=== PATIENT | female | born 1935 | race African-American/Black ===

== ENCOUNTER 2016-08-25 17:49 | Emergency (ER) | payer MEDICARE ==
[~2016-08-25] VITALS: Ht 154.9 cm; Wt 78.0 kg
[~2016-08-25 17:49] MED LIST: AMLO2.5T OR; BENI40TA33 PO; CARV3.12 OR; CLON.1 PO; MECL25CH PO; VITA100T15 PO; VITA400C28 PO
[2016-08-25 17:50] VITALS: BP 178/82; PULSE 74; RESP 20; TEMP 97.8; O2SAT 99
[2016-08-25] MEDS ORDERED: TRAM50TA PO ×2 (18:04→20:15)
[2016-08-25] MEDS ORDERED: BENI40TA3 PO (18:04)
[2016-08-25] MEDS ORDERED: D3400CAP (18:04)
[2016-08-25] MEDS ORDERED: CLON0.1T PO (18:04)
[2016-08-25] MEDS ORDERED: CARV3.125 PO (18:04)
[2016-08-25] MEDS ORDERED: AMLO10TA2 PO (18:04)
[2016-08-25] MEDS ORDERED: CHOLCRY (18:04)
--- NOTE | 2016-08-25 18:14 | PD ---
HPI Chief Complaint: Back/ Neck Pain or Injury Time Seen by Provider: 18:08 Travel History International Travel<30 days: No Contact w/Intl Traveler<30days: No Traveled to known affect area: No History of Present Illness HPI 81-year-old female with history of multiple medical issues, history of chronic back pains and sciatica, presents to the ER today because she states that she has been having lower back pains starting today which is constant in nature and does not radiate anywhere. She states that initially it was a 9-10 out of 10 and she took her own tramadol and is now a 7 out of 10 and she states it seems to be working. She also states she has been having frequent urination. She denies any difficulty walking, incontinence, fevers, abdominal pains, or other symptoms. Modifying Factors: None Associated Signs & Symptoms: Lower back pains, urinary symptoms Risk Factors: History of chronic back pains, UTI last month PFSH Past Medical History Anemia: Yes Arthritis: Yes Blood Disorders: No Cancer: Yes (COLON) Cardiovascular Problems: Yes (HYPERTENSION, MURMUR, ) Chemotherapy: No Cerebrovascular Accident: Yes Diabetes: Yes Patient Takes Glucophage: No Diminished Hearing: No Endocrine: Yes Gastrointestinal Disorders: Yes GERD: Yes Genitourinary: Yes Hepatitis: No Hiatal Hernia: Yes Hypertension: Yes Immune Disorder: No Musculoskeletal: Yes Neurologic: Yes Psychiatric: No Reproductive: No Respiratory: No Radiation Therapy: No Thyroid Disease: No PNEUMOCCOCAL Vaccine (Year): 1 Past Surgical History Abdominal Surgery: Yes (/colon resection due to cancer/bowel obstruction ) Appendectomy: Yes Eye Surgery: Yes Gynecologic Surgery: Yes Hysterectomy: Yes Pacemaker: No Other Surgery: Yes (pancreas/spleen) Social History Alcohol Use: No Tobacco Use: No Substance Use: No Allergies-Medications (Allergen,Severity, Reaction): Coded Allergies: Gabapentin (Verified Adverse Reaction, Unknown, Dizziness, 08/25/16) Lyrica (Verified Adverse Reaction, Unknown, Dizziness, 08/25/16) Reported Meds & Prescriptions Reported Meds & Active Scripts Active Reported D3 (Cholecalciferol) 400 Unit Cap Cholecalciferol (Cholecalciferol (Bulk)) 1 Cry Cry Tramadol (Tramadol HCl) 50 Mg Tab 50 Mg PO Q6H PRN Benicar (Olmesartan) 40 Mg Tab 40 Mg PO DAILY Clonidine (Clonidine HCl) 0.1 Mg Tab 0.1 Mg PO BID Coreg (Carvedilol) 3.125 Mg Tab 3.125 Mg PO BID Amlodipine (Amlodipine Besylate) 10 Mg Tab 10 Mg PO DAILY Review of Systems Except as stated in HPI: all other systems reviewed are Neg Physical Exam Narrative GENERAL: Well-developed pleasant elderly -[place] female patient in mild distress. Awake and oriented 3. SKIN: Focused skin assessment warm/dry. HEAD: Atraumatic. Normocephalic. EYES: Pupils equal and round. No scleral icterus. No injection or drainage. ENT: No nasal bleeding or discharge. Mucous membranes pink and moist. NECK: Trachea midline. No JVD. CARDIOVASCULAR: Regular rate and rhythm. No murmur appreciated. RESPIRATORY: No accessory muscle use. Clear to auscultation. Breath sounds equal bilaterally. GASTROINTESTINAL: Abdomen soft, non-tender, nondistended. Hepatic and splenic margins not palpable. MUSCULOSKELETAL: No obvious deformities. No clubbing. No cyanosis. No edema. BACK: No CVA tenderness. No rash. No point tenderness on palpation of the spine. NEUROLOGICAL: Awake and alert. No obvious cranial nerve deficits. Motor grossly within normal limits. Normal speech. PSYCHIATRIC: Appropriate mood and affect; insight and judgment normal. Data Data Last Documented VS Vital Signs Date Time Temp Pulse Resp B/P Pulse Ox O2 Delivery O2 Flow Rate FiO2 08/25/16 17:50 97.8 74 20 178/82 99 Room Air Orders Urinalysis - C+S If Indicated (08/25/16 18:08) Spine, Lumbar Comp W/Obliq (08/25/16 18:08) Labs Laboratory Tests Test 08/25/16 18:13 Urine Color LIGHT-YELLOW Urine Turbidity CLEAR Urine pH 7.0 Urine Specific [place] 1.008 Urine Protein 30 mg/dL Urine Glucose (UA) NEG mg/dL Urine Ketones NEG mg/dL Urine Occult Blood NEG Urine Nitrite NEG Urine Bilirubin NEG Urine Urobilinogen LESS THAN 2.0 MG/DL Urine Leukocyte Esterase MOD Urine WBC 3 /hpf Urine Squamous Epithelial <1 /hpf Cells Urine Mucus FEW /lpf Microscopic Urinalysis Comment CULT NOT INDICATED MDM Medical Decision Making Medical Screen Exam Complete: Yes Emergency Medical Condition: Yes Medical Record Reviewed: Yes Interpretation(s) Laboratory Tests Test 08/25/16 18:13 Urine Protein 30 mg/dL (NEG-TRACE) Urine Leukocyte Esterase MOD (NEG) Urine Mucus FEW /lpf (OCC) Last 24 hours Impressions Lumbar Spine X-Ray 08/25/16 1808 Signed Impressions: Service Date/Time: Saturday, August 25, 2016 18:25 - CONCLUSION: 1. Moderate degenerative change. No acute findings. Malachi Sahu MD Differential Diagnosis Back pain, urinary symptomsUTI versus acute on chronic back pains versus arthritis versus muscle spasms versus sciatica Narrative Course X-ray did not show any signs of acute processes. UA did not show significant UTI. Patient has had previous history of chronic back pains and I suspect that some of the symptoms may be secondary to her chronic back pain. She had taken her own tramadol before coming to the ER and actually started feeling improved and ready. She has no neurological focal deficits, fevers, incontinence, or any other new symptoms. My plan would be to release her with follow-up to primary care physician. Return for any worsening in symptoms as necessary. The plan has been discussed with the patient and she states understanding. Diagnosis Primary Impression: Acute exacerbation of chronic low back pain Med/Other Pt SpecificInfo: Prescription(s) given Scripts Tramadol 50 Mg Tab50 Mg PO Q6H PRN (PAIN) #20 TAB Ref 0 Prov:Olive Luna MD 08/25/16 Disposition: 01 DISCHARGE HOME Condition: Stable Olive Luna MD August 25, 2016 18:13
[2016-08-25 18:38] LABS: BLOOD, URINE NEG (NEG); COMMENT (UR) CULT NOT INDICATED; CULTURE IF INDICATED CULT NOT INDICATED; GLUCOSE,URINE NEG (NEG); KETONE, URINE NEG (NEG); MUCUS URINE FEW /lpf (OCC); NITRITE,URINE NEG (NEG); SQUAMOUS EPITHELIAL CELL URINE <1 /hpf (0-5); URINE COLOR LIGHT-YELLOW (YELLW/STRAW)
--- NOTE | 2016-08-25 20:03 | RADRPT ---
EXAM DATE/TIME: 08/25/2016 18:25 [place] COMPARISON: No previous studies available for comparison. INDICATIONS : Patient complains of lower back pain. No known injury. MEDICAL HISTORY : None. SURGICAL HISTORY : None. ENCOUNTER: Initial ACUITY: 3 days PAIN SCORE: 7/10 LOCATION: L-Spine FINDINGS: There is no acute fracture. No significant spondylolisthesis. Moderate degenerative disc disease. CONCLUSION: 1. Moderate degenerative change. No acute findings. Malachi Sahu MD on August 25, 2016 at 19:57 Board Certified Radiologist. This report was verified electronically.
== END 2016-08-25 20:21 | disposition home or self-care (01) ==
LOC: NEPD 17:49
DX: M54.5 Low back pain (principal); G89.29 Other chronic pain
CPT/HCPCS: 72110; 81001; 99283

== ENCOUNTER 2016-11-29 09:48 | Day surgery (SDC) | payer MEDICARE ==
[~2016-11-29] VITALS: Ht 154.9 cm; Wt 75.2 kg
[~2016-11-29 09:48] MED LIST changes: +AMLO10TA2 PO; -AMLO2.5T OR; +BENI40TA3 PO; -BENI40TA33 PO; -CARV3.12 OR; +CARV3.125 PO; +CHOLCRY; -CLON.1 PO; +CLON0.1T PO; +D3400CAP; -MECL25CH PO; +TRAM50TA PO; -VITA100T15 PO; -VITA400C28 PO
[2016-11-29 10:38] VITALS: BP 160/88; PULSE 72; RESP 17; TEMP 97.7; O2SAT 100
[2016-11-29] MEDS ORDERED: ASPIRIN 81 MG CHEW TAB PO SCH (11:00)
[2016-11-29 11:12] LABS: AUTOMATED NEUTROPHIL # 4.1 TH/MM3 (1.8-7.7); BASOPHIL % 0.4 % (0.0-2.0); EOSINOPHIL # 0.1 TH/MM3 (0-0.4); EOSINOPHIL % 0.8 % (0.0-4.0); HEMATOCRIT 35.5 % (35.0-46.0); HEMO FLAGS DIFF FINAL; LYMPH % 26.2 % (9.0-44.0); LYMPHOCYTE # 1.7 TH/MM3 (1.0-4.8); MEAN CELL VOLUME 78.4 FL (80.0-100.0); MEAN CORPUSCULAR HEMOGLOBIN 24.6 PG (27.0-34.0); MEAN CORPUSCULAR HGB CONC 31.3 % (32.0-36.0); MONO % 9.3 % (0.0-8.0); NEUT % 63.3 % (16.0-70.0); PLATELET COUNT 247 TH/MM3 (150-450); RED BLOOD COUNT 4.52 MIL/MM3 (4.00-5.30); RED CELL DISTRIBUTION WIDTH 15.7 % (11.6-17.2); WHITE BLOOD COUNT 6.5 TH/MM3 (4.0-11.0)
[2016-11-29 11:25] LABS: APTT (PATIENT) 23.3 SEC (24.3-30.1); INTERNATIONAL NORMALIZED RATIO 0.9 RATIO; PROTHROMBIN TIME - PATIENT 10.2 SEC (9.8-11.6)
[2016-11-29 11:35] LABS: POTASSIUM 4.3 MEQ/L (3.5-5.1)
[2016-11-29] MEDS ORDERED: HEPARIN-NS/PF INJ 500 ML ONE (12:13)
--- NOTE | 2016-11-29 13:34 | CATHPROC ---
[employer] HIS Report Study Information Study Number Admission Scheduled Start Study Start [id number] Nov 29 2016 9:48AM 11/29/2016 Nov 29 2016 11:47AM [facility] Cardiac Catheterization Admit Source Facility Department Other [facility] Physician and Clinical Staff Initial MD Dove, Matt Fur Cutting Machine Operatorjorge Michaels RN, Juan M Campos cathlab, cathlab Recorder Jack Duke RCIS(BS) Scrub Kyle BustillosRT(R) Procedures Performed Procedure Location (Site) Vessel Name Coronary Angiograms LCA Left Coronary Coronary Angiograms RCA Right Coronary LV Gram-hand inj. LV LV Ventricle Equipment Time Recreational Therapist Description Size Mfg Part Number Used/Scraped CATHETER, FR5 SWAN ARTEMIO 12:05 CHANEY DOLAN FR 5 110F5 *[id number] Used MONITOR CATHETER, FR5 SWAN ARTEMIO 12:28 CHANEY DOLAN FR 5 110F5 *[id number] Used MONITOR TRANSDUCER, TRUWAVE [id number] 12:05 CHANEY DOLAN * Used W/STOCKCOCK *[id number] 538-420 *[id number] 538-421 *[id number] 12:05 [employer] PACK, CCL CUSTOM * Used *[id number] 12:05 [email or web address] PACER PEN, SKIN DUAL W/ RULER * Used *[id number] PSI-4F-11- 12:27 tribr MEDICAL SHEATH, FR4.5 PRELUDE 11CM FR 4.5 Used 035ACT PSI-4F-11- 13:20 tribr MEDICAL SHEATH, FR4.5 PRELUDE 11CM FR 4.5 Used 035ACT PSI-5F-11- 12:05 tribr MEDICAL SHEATH, FR5.5 PRELUDE 11CM FR 5.5 Used 038ACT# [id number] 12:05 tribr MEDICAL WIRE, 3MMJ .035 180CM 180CM Used *[id number] 12:05 NAMIC MANIFOLD, 4 PORT * Used *[id number] 12:05 NYCOMED OMNIPAQUE, 350 MG, 150ML 150ML [id number] Used [id number] 12:05 [employer] MEDICAL BLANKET,WARM AIR CCL * Used *[id number] History: Current Medications Medication Dosage/Unit Route Frequency Last Date/Time Taken Beta Domi History: Allergies Allergy Reaction Gabapentin Dizziness Lyrica Dizziness History: Risk Factors Family History of Hypertension Dyslipidemia Previous MT Previous Heart Failure Premature CAD Yes No No No No Prior Valve Prior PCI Prior CABG Surgery No No No Cerebrovascular Peripheral Artery Chronic Lung On Dialysis Diabetes Diabetes Therapy Disease Disease Disease No Yes No No Yes Diet History: Symptoms/Diagnosis Selection Items SOB History: Stress Tests Stress or Imaging Studies Performed No History: Other Disease Selection Items HTN History: Other Current Smoker No Labs Hgb (g/dl) Hct (%) WBC (l/cumm) Platelets (thousands) 11.60-17.00 35.00-51.00 4.00-11.00 150.00-450.00 11.1 35.5 6.5 247 Glucose (mg/dl) BUN (mg/dl) Creatinine (mg/dl) BUN:Creatinine (1:x) 74.00-106.00 7.00-18.00 0.50-1.30 10.00-20.00 112 36 1.9 18.9 Na (meq/l) K (meq/l) 136.00-145.00 3.50-5.10 140 4.3 INR (PTT:PT) 0.90-1.10 0.9 CPK-MB (ng/ML) 0.50-3.60 Not Drawn Medication Medication Total Dose (Bolus/Oral) Medication Total Dosage/Unit 1% XYLOCAINE 40 mL Medications (Bolus/Oral) Medication Time Given Dosage/Unit Administered By Reason 1% XYLOCAINE 11/29/2016 1:11:10 PM 20 mL Derrell, Matt 20 mL 1% XYLOCAINE given in lab by Derrell, Matt in Right Groin via Subcutaneous. 1% XYLOCAINE 11/29/2016 1:20:24 PM 20 mL Derrell, Matt 20 mL 1% XYLOCAINE given in lab by Derrell, Matt in Left Groin via Subcutaneous. Medication (Drip) Medication Time Given Dosage/Unit Concentration/Unit Diluent (ml) Solution IV Solutions 11/29/2016 12:04:24 PM 0 mL (IV) 500 NaCl .9 Patient arrived on IV Solutions given by cathlab, cathlab in Left Antecubital via Peripheral IV. Pump /Drip Flow = 20 ml/hr using NaCl .9. Initial Case Assessment Cardiovascular HR Rhythm NIBP Chest Pain 66 sinus 164/87 0 Edema Present Skin color Skin None Normal Warm Dry Circulatory - Right Pulses Dorsalis Pedis Femoral 1 2 Scale (0,1,2,3,4,d) Circulatory - Left Pulses Dorsalis Pedis Femoral 1 1 Scale (0,1,2,3,4,d) Neurological State Oriented to time-place- Alert Moves all extremities person Respiration - General Respiration Rate SpO2 (%) (B/min) 15 100 Initial Case Assessment Cardiovascular HR Rhythm NIBP Chest Pain 69 sinus 137/62 0 Edema Present Skin color Skin None Normal Warm Dry Circulatory - Right Pulses Dorsalis Pedis Femoral 1 2 Scale (0,1,2,3,4,d) Circulatory - Left Pulses Dorsalis Pedis Femoral 1 1 Scale (0,1,2,3,4,d) Neurological State Oriented to time-place- Alert Moves all extremities person Respiration - General Respiration Rate SpO2 (%) (B/min) 15 100 Chronological Log Time Study Chronological Log 12:04:13 Patient arrived via Bed. 12:04:13 Patient Name, D.O.B, / Armband Verified By R.N. 12:04:14 Consent signed by the physician and the patient and verified by the [facility] staff. 12:04:15 Pre-op and post- op instructions given; patient acknowledges understanding of instructions. 12:04:17 Verbal Stimulation=2 Physical Stimulation=2 Airway=2 Respiration=2 TOTAL=8. (0=absent, 1=li mited, 2=present) 12:04:18 Presedation assessment performed by [facility] RN. 12:04:19 Immediate Presedation assesment performed by physician. 12:04:20 Patient has been NPO for More than 6Hrs. 12:04:20 Skin Breakdown- none per patient 12:04:20 Patient Warmer Placed on the Table. 12:04:22 Hannah Prominences Protected 12:04:23 A # 20 IV was noted in the Antecubital (left). Grade = 0 Patient arrived on IV Solutions given by cathlab, cathlab in Left Antecubital via Peripheral IV . Pump/Drip Flow = 20 12:04:24 ml/hr using NaCl .9. 12:04:25 History and physical on the chart or being dictated. Vitals capture started with the following parameters, Patient=Adult, Interval=5 min, Initial Pr jypsfu=878 mmHg, 12:12:33 Deflation Rate=5 mmHg, Cuff placed on Right Arm 12:13:14 HR=69 bpm, ZZAI=437/87 mmhg, DfA0=805.0 %, Resp=13 B/min, Pain=0, Agatha=10, Solis=2 12:14:22 Reference ECG taken Assessment: Initial Case, HR=66 BPM, Rhythm=sinus, SZWH=957/87 mmhg, Chest Pain=0, Edema=None, Color=Normal, Skin = Warm, Dry Right Pulses: Manas Ped=1, Femoral=2 12:14:25 Left Pulses: Manas Ped=1, Femoral=1 Neurological: State=Alert, Ox3, PERLA Respiration: Resp=15 B/min, CeY9=475 % 12:18:21 HR=71 bpm, EQMI=377/72 mmhg, SpO2=98.0 %, Resp=15 B/min, Pain=0, Agatha=10, Solis=2 12:20:29 MD paged 12:23:22 HR=67 bpm, MHTS=883/79 mmhg, CeJ9=705.0 %, Resp=16 B/min, Pain=0, Agatha=10, Solis=2 12:24:24 Pressure channel 1 zeroed. 12:28:19 HR=64 bpm, UGPS=209/78 mmhg, SpO2=99.0 %, Resp=14 B/min, Pain=0, Agatha=10, Solis=2 12:31:04 MD responded 12:33:20 HR=63 bpm, HAKV=380/74 mmhg, SpO2=99.0 %, Resp=11 B/min, Pain=0, Agatha=10, Solis=2 12:38:19 HR=62 bpm, GKFF=612/83 mmhg, SpO2=99.0 %, Resp=13 B/min, Pain=0, Agatha=10, Solis=2 12:43:20 HR=72 bpm, THBE=412/82 mmhg, SpO2=99.0 %, Resp=16 B/min, Pain=0, Agatha=10, Solis=2 12:48:24 HR=67 bpm, ITVA=943/78 mmhg, SpO2=99.0 %, Resp=15 B/min, Pain=0, Agatha=10, Solis=2 12:53:23 HR=66 bpm, TLZO=735/75 mmhg, SpO2=98.0 %, Resp=15 B/min, Pain=0, Agatha=10, Solis=2 12:58:20 HR=67 bpm, EDVK=586/81 mmhg, SpO2=99.0 %, Resp=15 B/min, Pain=0, Agatha=10, Solis=2 13:03:25 HR=69 bpm, VKZI=296/75 mmhg, FcN2=464.0 %, Resp=18 B/min, Pain=0, Agatha=10, Solis=2 13:08:07 MD arrived. 13:08:09 Contrast Scanned 13:08:10 Immediate Presedation assesment performed by physician. 13:09:07 HR=65 bpm, OCAU=067/85 mmhg, LoA5=311.0 %, Resp=15 B/min, Pain=0, Agatha=10, Solis=2 Time Out. Correct patient, correct procedure,correct physician, ,power injector not loaded with contrast with surgical 13:10:06 team present. Time Out Concurred by MD, individual staff in procedure 13:10:15 Case Start 13:10:16 Verbal Stimulation=2 Physical Stimulation=2 Airway=2 Respiration=2 TOTAL=8. (0=absent, 1=li mited, 2=present) 13:11:10 20 mL 1% XYLOCAINE given in lab by Matt Dove in Right Groin via Subcutaneous. 13:12:18 Access site was Right Femoral Vein. 13:12:26 A SHEATH, FR5.5 PRELUDE 11CM FR 5.5 was advanced into the Fem Vein (right) using the Percut aneous technique. 13:13:23 HR=69 bpm, SESL=815/85 mmhg, SpO2=99.0 %, Resp=17 B/min, Pain=0, Agatha=10, Solis=2 13:14:02 Access site was Right Femoral Artery. 13:14:15 A SHEATH, FR4.5 PRELUDE 11CM FR 4.5 was advanced into the Fem Art (right) using the Percuta neous technique. 13:14:59 Saturation: Site=Ao (Aorta) , O2=96.3 %, Hgb=11.1 gm/dl, Condition=Condition 1. Used in alberto culation. Recorded Pressure: PCW, HR=77, Condition=Condition 1 13:16:05 (Pulmonary Capillary Wedge) PCW 24/23/18 Recorded Pressure: MPA, HR=74, Condition=Condition 1 13:16:19 (Main Pulmonary Artery) MPA 13:16:29 Saturation: Site=PA (Pulmonary Artery) , O2=76.8 %, Hgb=11.1 gm/dl, Condition=Condition 1. Used in calculation. Recorded Pressure: RV, HR=61, Condition=Condition 1 13:17:18 (Right Ventricle) RV 43 Recorded Pressure: RA, HR=75, Condition=Condition 1 13:17:30 (Right Atrium) RA 06/04/11 13:17:54 Saturation: Site=RA (Right Atrium) , O2=80.4 %, Hgb=11.1 gm/dl, Condition=Condition 1. Used in calculation. 13:18:04 [place] Artemio Catheter Removed A JR 4.0 INFINITI CATHETER FR 4 was advanced over a wire. OMNIPAQUE, 350 MG, 150ML 150ML was us ed for 13:18:04 injections. 13:18:24 HR=75 bpm, JXXH=593/90 mmhg, SpO2=99.0 %, Resp=15 B/min, Pain=0, Agatha=10, Solis=2 13:19:32 An injection in the Fem Art (right) was made through the SHEATH, FR4.5 PRELUDE 11CM FR 4.5. 13:19:46 Catheter was removed 13:20:24 20 mL 1% XYLOCAINE given in lab by Matt Dove in Left Groin via Subcutaneous. 13:21:54 Access site was Left Femoral Artery. 13:21:59 A SHEATH, FR4.5 PRELUDE 11CM FR 4.5 was advanced into the Fem Art (left) using the Percutan eous technique. A JR 4.0 INFINITI CATHETER FR 4 was advanced over a wire. OMNIPAQUE, 350 MG, 150ML 150ML was us ed for 13:22:53 injections. Recorded Pressure: LV, VO=448, Condition=Condition 1 13:23:24 (Left Ventricle) LV 164/85/45 13:23:27 DK=917 bpm, FDIP=185/62 mmhg, OdY3=171.0 %, Resp=15 B/min 13:23:30 The LV was manually injected with 10 cc's and visualized. OMNIPAQUE, 350 MG, 150ML 150ML us ed. Recorded Pressure: LV, Ao, HR=84, Condition=Condition 1 13:23:36 (Left Ventricle) LV 167/44/46, (Aorta) Ao 201/104/145 13:24:40 The RCA was injected and visualized at various angles. OMNIPAQUE, 350 MG, 150ML 150ML used . After removing the current catheter a JL 4.0 INFINITI CATHETER FR 4 was advanced over a WIRE, 3 MMJ .035 180CM 13:24:45 180CM. Recorded Pressure: Ao, HR=66, Condition=Condition 1 13:25:49 (Aorta) Ao 179/91/126 13:26:02 The LCA was injected and visualized at various angles. OMNIPAQUE, 350 MG, 150ML 150ML used . 13:27:15 Catheter was removed 13:27:22 Case End Assessment: Initial Case, HR=69 BPM, Rhythm=sinus, HDBB=990/62 mmhg, Chest Pain=0, Edema=None, Color=Normal, Skin = Warm, Dry Right Pulses: Manas Ped=1, Femoral=2 13:27:28 Left Pulses: Manas Ped=1, Femoral=1 Neurological: State=Alert, Ox3, PERLA Respiration: Resp=15 B/min, GqV1=285 % 13:27:42 Sterile dressing applied to site 13:27:42 No case complications noted. 13:27:43 Cine recording checked. 13:27:47 Contrast Scanned 13:27:49 Verbal Stimulation=2 Physical Stimulation=2 Airway=2 Respiration=2 TOTAL=8. (0=absent, 1=li mited, 2=present) 13:27:57 A Left and Right Heart Cath was performed. 13:28:55 HR=70 bpm, WUZD=765/85 mmhg, SpO2=99.0 %, Resp=15 B/min, Pain=0, Agatha=10, Solis=2 13:29:33 Vitals capture stopped. End Study - Contrast Media Used In Study Contrast Total Opened (mL) Total Used (mL) Total Wasted (mL) Omnipaque 35 35 0 End Study - Maximum Contrast Load Max Contrast Load (mL) 197.8 End Study - Radiation Exposure Fluoro Time (minutes) 2.4 End Study - Patient Disposition Complications Transferred To Interventional Outcome No [facility] No attempt made
[2016-11-29] MEDS ORDERED: SODIUM CHLORIDE 0.9% FLUSH 10 ML FLUSH PRN (13:45)
[2016-11-29] MEDS ORDERED: MISC INFORMATION XX ONE (13:45)
[2016-11-29 14:20] LABS: HDL CHOLESTEROL 66.3 MG/DL (40.0-60.0); INDIRECT BILIRUBIN 0.3 MG/DL (0.0-0.8); TOTAL BILIRUBIN ADULT 0.4 MG/DL (0.2-1.0)
[2016-11-29] MEDS ORDERED: IOHEXOL 350 MG/ML 50 ML BTL (for Cath Lab) OTHER ONE (14:26)
[2016-11-29] MEDS ORDERED: SODIUM CHLORIDE 0.9% FLUSH 10 ML FLUSH SCH (21:00)
--- NOTE | 2016-11-30 15:40 | EKG ---
Date Performed: 11/29/2016 Time Performed: 10:51:20 PTAGE: 81 years EKG: Sinus rhythm rSr'(V1) - probable normal variant Compared to prior tracing no significant change Normal ECG PREVIOUS TRACING : 05/18/2015 00.34 DOCTOR: Kerwin Pereira Interpretating Date/Time 11/30/2016 15:39:26
--- NOTE | 2016-12-01 07:50 | MA ---
cc: DENIZ KELLEY M.D. DATE 11/29/2016 PROCEDURE PERFORMED Right heart catheterization, left heart catheterization, left ventriculography, coronary angiography. INDICATION Aortic valve stenosis, new onset cardiac symptoms of chest pain at rest, unstable angina, [place] Cardiovascular Society Class IV angina, coronary artery disease, also dyspnea and congestive heart failure. PROCEDURAL STATEMENT The patient was brought to the cardiac catheterization laboratory, prepped and draped in the usual sterile fashion. 10 cc's of 1% lidocaine was used to locally anesthetize the right common femoral artery and right common femoral vein and then I also had anesthetized the left common femoral artery as I could not advance a wire into the right common femoral artery, therefore, arterial access was obtained to the left common femoral artery. Catheterization was performed first with following findings: The pulmonary capillary wedge pressure was 24/20-18. The PA pressure 37/15-26. RV pressure 43/9-14. RA pressure 16/12-11. Cardiac output by Venita is 4.2 liters per minute. Cardiac index by Venita is 4.2 liters per meter squared per minute. SVR 1245.1 dynes. All on room air: FA sat 96.3%. PA sat 76.8%. RA sat 80.4%. Left heart catheterization was then performed with 4-Azeri JR-4, JL-4 catheter with following findings: The LV pressure is running 5/10-15. There was no pullback gradient. I was able to easily cross the valve with 8.035 J-tip wire. The EF is 65-72%. The right coronary is a codominant vessel with a proximal 50% stenosis. There is abrupt vessel tapering from approximately a 35 mm vessel to a 22-25 mm vessel in the proximal mid segment just at the RV branch. Suspect some amount of this is from plaque and some degree is the regular vessel tapering. The left main coronary has no significant disease angiographically. The left circumflex vessel is a codominant vessel, has no significant disease angiographically. The first obtuse marginal vessel is large vessel with no significant disease angiographically. Second and third obtuse marginal vessels are small vessels with no significant disease angiographically. There is a small PDA with no significant wheeze angiographically. The LAD is a large transapical vessel with no significant obstructive disease. The first diagonal artery is a medium-sized vessel no significant CONCLUSION 1. Moderate right coronary artery disease as detailed above 50-60% angiographically in a codominant system. Otherwise, no significant coronary disease. 2. Mildly elevated right heart pressures as detailed above. 3. Hyperdynamic LV systolic function ejection fraction 65%. 4. No evidence of aortic valve stenosis. RECOMMENDATIONS 1. Medical management for coronary artery disease. 2. Cardiac risk factor modification. 3. Recommend consider PCI of the right coronary artery if the patient has moderate to severe chest pain despite optimal medical therapy. 4. Currently she is not on statin or aspirin. We will need to Start her on a baby aspirin 81 mg a day and check left LFTs, Lipids and CK and treat as per NCP guidelines provided there is no contraindication. MD YESSENIA Armstrong/TRICE /1:30 PM /7:31 AM
== END 2016-11-29 17:15 | disposition home or self-care (01) ==
LOC: HDOC 09:48 → HDIC 09:49 → HDOC 17:15
PROVIDERS: ATTEND Internal Medicine Interventional Cardiology
DX: I25.110 Atherosclerotic heart disease of native coronary artery with unstable angina pectoris (principal); I35.0 Nonrheumatic aortic (valve) stenosis; I50.9 Heart failure, unspecified; R06.00 Dyspnea, unspecified; Q25.0 Patent ductus arteriosus; Z01.818 Encounter for other preprocedural examination
CPT/HCPCS: 80048; 80061; 80076; 82550; 85025; 85610; 85730; 93005; 93460; C1769; C1893; J1644; Q9967